=== PATIENT | female | born 2000 | race African-American/Black ===

== ENCOUNTER 2024-03-18 13:15 | Emergency (ER) | payer OTHER ==
[~2024-03-18] VITALS: Ht 170.2 cm; Wt 79.5 kg
[2024-03-18 13:25] VITALS: O2SAT 100
[2024-03-18 13:50] LABS: EOSINOPHILS % 0.3 % (0.0-5.0); HEMATOCRIT. 38.2 % (36.0-48.0); HEMOGLOBIN. 12.7 g/dL (12.0-16.0); MEAN CORPUSCULAR HEMOGLOBIN 27.1 pg (28.0-32.0); MEAN CORPUSCULAR HGB CONC 33.2 g/dL (31.0-37.0); MEAN CORPUSCULAR VOLUME 81.7 fL (81.0-99.0); MEAN PLATELET VOLUME 7.9 fl (7.4-10.4); MONOCYTES % 9.9 % (2.0-8.0); NEUTROPHILS % 51.8 % (40.0-76.0); PLATELET 314 x1000/uL (130-400); RED BLOOD CELL COUNT 4.67 mill/uL (4.2-5.4); WHITE BLOOD COUNT 5.2 x1000/uL (4.5-11.0)
[2024-03-18 13:59] LABS: CHLORIDE 102 mEq/L (98-107); POTASSIUM 3.7 mEq/L (3.5-5.1); SODIUM 133 mEq/L (136-145)
[2024-03-18 14:00] LABS: CALCIUM 9.2 mg/dL (8.7-10.4); CARBON DIOXIDE 25 mEq/L (21-32)
[2024-03-18 14:05] LABS: CREATININE 0.8 mg/dL (0.6-1.0); GLUCOSE 82 mg/dL (70-105); UREA NITROGEN BLOOD 9 mg/dL (9-23)
[2024-03-18 14:07] LABS: ALANINE AMINOTRANSFERASE 18 IU/L (10-49); ALBUMIN 4.4 g/dL (3.2-4.8); ASPARTATE AMINOTRANSFERASE 15 IU/L (<34)
[2024-03-18 14:08] LABS: BILIRUBIN TOTAL 0.5 mg/dL (0.1-1.0); PROTEIN TOTAL 7.6 g/dL (6.0-8.3)
[2024-03-18 14:34] LABS: HCG SCREEN POSITIVE
[2024-03-18] MEDS: IBUPROFEN 800MG TABLET PO ONE (14:44)
[2024-03-18] MEDS: FAMOTIDINE 20MG TABLET PO ONE (14:44)
[2024-03-18 14:54] LABS: CLARITY URINE CLEAR (CLEAR); COLOR URINE YELLOW (YELLOW); GLUCOSE URINE NEGATIVE (NEGATIVE); KETONES URINE NEGATIVE (NEGATIVE); LEUKOCYTE ESTERASE URINE NEGATIVE (NEGATIVE); NITRITE URINE NEGATIVE (NEGATIVE); OCCULT BLOOD URINE NEGATIVE (NEGATIVE); PROTEIN URINE NEGATIVE (NEGATIVE); SPECIFIC GRAVITY URINE 1.007 (1.005-1.030); UROBILINOGEN URINE 0.2 E.U./dL (0.2-1.0)
[2024-03-18] MEDS: ACETAMINOPHEN 325MG TABLET PO NR (15:55)
[2024-03-18] MEDS ORDERED: FAMO-135 MT (17:05)
[2024-03-18 18:19] VITALS: BP 115/64; PULSE 67; RESP 16; TEMP 97.5
== END 2024-03-18 18:20 | disposition home or self-care (01) ==
LOC: ER 13:15
DX: R10.13 Epigastric pain (principal); J45.909 Unspecified asthma, uncomplicated; Z86.59 Personal history of other mental and behavioral disorders; Z88.0 Allergy status to penicillin
CPT/HCPCS: 36415; 76705; 76801; 80053; 81003; 81025; 84702; 84703; 85025; 99284